=== PATIENT | male | born 1945 | race Caucasian/White ===

== ENCOUNTER 2017-08-09 09:09 | Emergency (ER) | payer OTHER ==
[2017-08-09] MEDS ORDERED: NS 1,000 ML IV ONE (09:51)
[2017-08-09] MEDS ORDERED: KETOROLAC 30 MG/1 ML SDV IVP ONE (09:51)
[2017-08-09] MEDS ORDERED: DEXAMETHASONE 10 MG/ML VIAL IVP ONE (09:51)
--- NOTE | 2017-08-09 09:51 | EDPHY ---
H & P Time Seen by Provider: 08/09/17 09:17 HPI/ROS: HPI Back pain. 72-year-old male by ambulance. His is present at bedside. This patient reports that he underwent bunion surgery by a regional sales director about a week ago. He was in an orthopedic boot which caused him to walk in uneven way. Since that time he has had left lower back pain. He then developed sciatica. Described as pain radiating from his buttock down about snf posterior aspect of left thigh. He presents the emergency department now complaining of worsening left lower back pain as well as pain going down the back of his leg and some numbness in the L5 dermatomal distribution. He was given 2 doses of intranasal fentanyl on the way to the emergency department. He has had some relief in his pain from this. Review of his MRI report significant for prominent degenerative facet arthropathy at L4-L5 including reactive marrow/soft tissue edema on the left side a 6 mm synovial cyst markedly narrows the left subarticular zone and impinges on the descending left L5 nerve root. ROS: Constitutional: No fever, no chills. No weakness. Eyes: No discharge. No changes in vision. ENT: No sore throat. No nasal congestion or rhinorrhea. Respiratory: No cough. No shortness of breath. Cardiac: No chest pain, no palpitations. Gastrointestinal: No abdominal pain, no vomiting, no diarrhea. Genitourinary: No hematuria. No dysuria or increased frequency with urination. Musculoskeletal: As above. No neck pain. No myalgias or arthralgias. Skin: No rashes. Neurological: No headache. As above. Past medical history: As above. Social history: No alcohol. No smoking. Here with his . Physical Exam: General Appearance: Alert, no distress. This patient is responding to questions appropriately and in full sentences. This patient appears well- hydrated and well-nourished. Eyes: Pupils equal and round no pallor or injection. No lid edema, erythema or injection. Back exam: Vague tenderness on palpation left paraspinal L4-L5, no soft tissue edema, erythema, warmth or ecchymosis noted. Negative same side and cross side straight leg raise test bilaterally. Paresthesia and 4/5 weakness noted L5 dermatomal myotomes all distribution on the left. Gastrointestinal: Abdomen is soft and nontender, no masses, bowel sounds normal. No focal tenderness at McBurney's point. No Guerrero sign. Neurological: Motor sensory function is grossly intact. Cranial nerves are normal. Gait is normal. Skin: Warm and dry, no rashes. Musculoskeletal: Neck is supple and nontender. Extremities are symmetrical. All joints range without pain or impingement. Psychiatric: No agitation. No depression. Database: EKG: Imaging: MRI of lumbar spine without contrast: Significant for a synovial cyst left- sided facet at L4-L5 causing impingement of the L5 nerve root. This cyst measures approximately 8 mm in diameter. Results were discussed with staff radiologist Dr. Jagjit Padilla. Procedures: Emergency department course: IV placed. He was placed on a monitor. Vital signs reviewed. Patient will initially be given 30 mg of IV Toradol and 10 mg of IV Decadron. He will be started on IV normal saline with 500 cc to 1 L to be given over the next hour. Secondary to his now acute neurologic L5 radicular findings. He consents to repeat MRI of his lumbar spine. 12:05 p.m., patient re-evaluated. Discussed results of MRI as noted above. Neurosurgery paged for consultation. 12:15 p.m., spoke with Dr. Sanchez. He or 1 of his colleagues will come to the emergency department shortly to evaluate the patient and planned disposition. 12:35 p.m., patient seen by Dr. Pedro Maurice of Neurosurgery. He recommends conservative treatment for the next 2 days including oral steroids and possibly a steroid injection. 1:00 p.m., spoke with interventional radiologist Dr. Karthikeyan sorensen. He will schedule this patient for a epidural steroid injection. He was given the patient's information. Plan for outpatient follow-up with IR was discussed with the patient and his . I will prescribe him a Medrol Dosepak. Patient is able to ambulate at this time. He does feel comfortable going home with a initial conservative management followed by Neurosurgery follow-up later this week. Return to emergency department precautions reviewed with him and his . All their questions were answered. The patient was discharged in good condition. Differential Diagnosis: The differential diagnosis on this patient includes but is not limited to L5 radiculopathy, acute intervertebral disc herniation. Spinal cord impingement syndrome, cauda equina syndrome, AAA, epidural abscess, acute fracture, dislocation/subluxation unlikely. This represents a partial list of diagnoses considered. These considerations are based on history, physical exam, past history, reassessment and diagnostic testing. Smoking Status: Never smoked Constitutional: Initial Vital Signs Temperature (C) 36.6 C 08/09/17 09:13 Heart Rate 78 08/09/17 09:13 Respiratory Rate 18 08/09/17 09:13 Blood Pressure 166/94 H 08/09/17 09:13 O2 Sat (%) 98 08/09/17 09:13 O2 Delivery Mode Room Air O2 (L/minute) 2 Allergies/Adverse Reactions: fluticasone Allergy (Verified 08/09/17 09:13) Home Medications: Medication Instructions Recorded Cyclobenzaprine 08/09/17 Meloxicam 08/09/17 Omeprazole 08/09/17 methylPREDNISolone [Medrol Dose 1 each PO AD #1 ea 08/09/17 Marc] Medical Decision Making - Diagnostics Imaging Results: Imaging Impressions Lumbar Spine MRI 08/09/17 09:52 Impression: 1. L4-L5: Moderate central canal stenosis and bilateral lateral recess stenosis , left worse than right secondary to moderate degenerative disk disease, severe bilateral facet arthropathy, degenerative grade 1 anterolisthesis, and left facet synovial cyst. 2. Please see above findings at specific disk levels. Findings and recommendations discussed with Emergency Department physician, Bernard Hannon MD, at 1150 hour, 08/09/2017. Final report concurs with initial preliminary interpretation. - Data Points Medications Given: Discontinued Medications Dexamethasone (Decadron Injection) 10 mg IVP EDNOW ONE Stop: 08/09/17 09:52 Last Admin: 08/09/17 09:59 Dose: 10 mg Sodium Chloride (Ns) 1,000 mls @ 0 mls/hr IV ONCE ONE; Wide Open PRN Reason: Protocol Stop: 08/09/17 09:52 Last Admin: 08/09/17 09:59 Dose: 1,000 mls Ketorolac Tromethamine (Toradol) 30 mg IVP EDNOW ONE Stop: 08/09/17 09:52 Last Admin: 08/09/17 09:59 Dose: 30 mg Departure - Departure Disposition: Home, Routine, Self-Care Clinical Impression: Lumbosacral radiculopathy at L5 Condition: Good Instructions: Lumbar Radiculopathy (ED) Additional Instructions: Read and follow provided instructions. Take medication as prescribed. Interventional radiologist, Dr. Karthikeyan sorensen, has your contact information. I have put in an order for an epidural steroid injection. His office should be contacting you shortly. Follow-up with Dr. Abdon Maurice or 1 of his partners with the neurosurgery service for re-evaluation later this week. Return to the emergency department for worsening or uncontrolled pain, worsening weakness or other serious concerns. Referrals: Abdon Maurice MD [Medical Doctor] - As per Instructions Leonides Sorensen MD [Medical Doctor] - As per Instructions Prescriptions: methylPREDNISolone [Medrol Dose Marc] 1 each PO AD #1 ea
[2017-08-09 13:21] VITALS: BP 159/85
[2017-08-09] MEDS ORDERED: TRIAMCINOLONE ACETONIDE 200 MG/5 ML MDV IM ONE (15:23)
[2017-08-09] MEDS ORDERED: IOPAMIDOL (ISOVUE-M 300) 15 ML VIAL ONE (15:23)
[2017-08-09] MEDS ORDERED: LIDOCAINE 1% 300 MG/30 ML SDV ONE (15:23)
[2017-08-09] MEDS ORDERED: DEXAMETHASONE 10 MG/ML VIAL ONE (15:43)
--- NOTE | 2017-08-09 16:57 | GCON ---
[f rep st] CONSULTATION NEUROSURGERY CONSULTATION DATE OF CONSULTATION: 08/09/2017 The patient was seen and evaluated in the [facility] ER at approximately 12:45 p.m. HISTORY OF PRESENT ILLNESS: The patient is a 72-year-old, otherwise healthy man who was brought in b y ambulance today. He had a recent bunion surgery on his left foot and has been having some signific ant left leg pain since around that time 2 weeks ago. His pain is primarily in the anterior portion of the may radiating in the lateral and top aspect of the foot, primarily L5 distribution. The pain has been worsening. He says it is worse in the morning, but today, he was unable to get out of bed at all. He presented into the emergency department here where an MRI of the lumbar spine was visuali zed showing an L4-5 significant facet disease with a 6 mm synovial cyst that narrows the lateral rece ss and impinges the descending L5 nerve root on the left. He had some meloxicam and muscle relaxants , but otherwise, no significant conservative management. His pain is reasonably well controlled at t he time of my visit with him, and he had been given some Toradol and narcotics. REVIEW OF SYSTEMS: A 10-point review of systems is negative other than that described above in HPI. PAST MEDICAL HISTORY: 1. Asthma. 2. Multiple orthopedic surgeries to both feet. SOCIAL HISTORY: The patient denies any tobacco, alcohol, or other drug use. He presents here with h is . He is retired. FAMILY HISTORY: Positive for cancer in the mother. ALLERGIES: Flonase. MEDICATIONS: 1. Flexeril. 2. Meloxicam. 3. Omeprazole. 4. A sleep aid. PHYSICAL EXAMINATION: VITAL SIGNS: Currently he is afebrile with normal, stable vital signs. NEURO LOGIC: He is awake, alert, and oriented x3. Cranial nerves 2-12 grossly normal. The strength in al l muscle groups of the upper limbs was grossly normal. In the lower extremities, he has 5/5 strength in hip flexors, extensors, knee flexors, extensors, and plantar and dorsiflexion bilaterally. He alexandra s a bandage on the left foot in the region of his bunionectomy. He has some decreased sensation in t he L5 distribution on the left side but is grossly intact. Deep tendon reflexes appear to be normal. He does have a quite positive straight leg raise on the left in L5 distribution. IMAGING REVIEW: See HPI. He does have an MRI of the lumbar spine which shows multilevel degenerativ e disease, worst at L4-5, with a synovial cyst on the left that significantly narrows the lateral rec ess and likely impinges on the descending L5 nerve root. ASSESSMENT AND PLAN: The patient is a 72-year-old man who has left L5 radiculopathy from likely a sy novial cyst at L4-5. I discussed with him the options including conservative and surgical options. In terms of conservative management, he has not done much thus far in the past and I recommended a Me drol Dosepak and follow up for an epidural steroid injection, and we could get him into some physical therapy as well. In terms of surgery, he would likely need a transforaminal lumbar interbody fusion at L4-5 to stabilize the facets and remove this cyst. We certainly could proceed with this if he wa nts in the future, but I recommended that he try some conservative management first. He is quite hap py with this plan. The emergency department going to arrange followup for him for a steroid injectio n, and we will arrange clinic followup for him as well. They will give him the numbers to call if he is having further problems and we will get him in sooner. /[id number]/MODL
--- NOTE | 2017-08-10 11:19 | PDCONSULT ---
Psychometrist Note: Consulted for acute LE radicular pain. Available MRI showed nerve root impingement 2/2 synovial cyst. Pt. seen by NSG Dr. Maurice who recommended lumber WILLA. Patient will consider definitive synovial cyst fenestration at a later date. Agree with Dr. Maurice and indication for WILLA to relieve pain and temporize. Radiology Procedure Note Date of Procedure: 08/10/17 Radiologist: Leonides Wagner Anesthesia: Local (Specify) Pre-op Diagnosis: left L4/5 NR impingement Post-op Diagnosis: same Indication: pain relief Procedure: left L4/5 WILLA Finding(s): good epidurogram prior to medication administration. Dexamethasone in 2mL lidocaine given. Pain relief was significant and immediate. Inf/Abcess present in the surg proc area at time of surgery?: No EBL: Minimal Complications: none
== END 2017-08-09 14:16 | disposition home or self-care (01) ==
LOC: EDUNIT#
DX: M54.17 Radiculopathy, lumbosacral region (principal); E86.9 Volume depletion, unspecified
CPT/HCPCS: 72148; 96361; 96374; 96375; 99152; 99285; J1100; J1885; Q9967; J3301

== ENCOUNTER 2017-08-16 13:30 | Day surgery (SDC) | payer OTHER ==
[2017-08-16] MEDS ORDERED: FLUMAZENIL 0.5 MG/5 ML MDV IVP PRN (13:51)
[2017-08-16] MEDS ORDERED: NALOXONE HCL 0.4 MG/ML INJ IVP PRN (13:51)
[2017-08-16] MEDS ORDERED: MIDAZOLAM 2 MG/2 ML VIAL IVP PRN (13:51)
[2017-08-16] MEDS ORDERED: fentaNYL 100 MCG/2 ML INJ IVP PRN (13:51)
[2017-08-16] MEDS ORDERED: NS 1,000 ML IV SCH (14:00)
--- NOTE | 2017-08-16 15:35 | PDGENHP ---
History & Physical Chief Complaint: LEFT L5 NERVE PAIN. LT L4-5 SONOVIAL CYST History of Present Illness: S/P L4-5 WILLA, WHICH HELPED X 24HRS. HERE FOR SYNOVIAL CYST FENESTRATION. Pertinent Past, Social, Family History: BUNIONECTOMY, SURGERY IN FOOT. Relevant Physical Exam: PAIN DOWN BOTH FOOT AND CALF Cardiorespiratory Assessment: RRR. CTA
--- NOTE | 2017-08-16 15:36 | PDPROPOC ---
Sedation Plan of Care Sedation Plan of Care: vital signs stable, mental status noted, patient educated of risks, benefits, alternatives, patient can tolerate sedation ASA Classification: ASA 1 Planned drugs: fentanyl, midazolam Mallampati Score: Class 1 Mallampati Reference Image: Patient passed 3-3-2 rule?: Yes
[2017-08-16] MEDS ORDERED: fentaNYL 100 MCG/2 ML INJ ONE ×3 (16:07→17:10)
[2017-08-16] MEDS ORDERED: MIDAZOLAM 2 MG/2 ML VIAL ONE ×2 (16:07→16:49)
[2017-08-16] MEDS ORDERED: TRIAMCINOLONE ACETONIDE 200 MG/5 ML MDV IM ONE (17:00)
[2017-08-16] MEDS ORDERED: IOPAMIDOL (ISOVUE-M 300) 15 ML VIAL ONE (17:18)
[2017-08-16] MEDS ORDERED: LIDOCAINE 1% 300 MG/30 ML SDV ONE (17:18)
[2017-08-16] MEDS ORDERED: ONDANSETRON 4 MG/2 ML VIAL IVP PRN (17:25)
--- NOTE | 2017-08-16 17:26 | PDRADPN ---
Radiology Procedure Note Date of Procedure: 08/16/17 Radiologist: Katheryn Santo Anesthesia: IV Sedation Pre-op Diagnosis: LT L4-5 SYNOVIAL CYST Post-op Diagnosis: SAME Indication: LT LEG PAIN Procedure: CYST FENESTRATION Finding(s): HARD CYST TO GET TO. GOT 0.2CC OF FLUID OUT. Inf/Abcess present in the surg proc area at time of surgery?: No Complications: NONE
[2017-08-16 18:10] VITALS: BP 149/76
== END 2017-08-16 18:50 | disposition home or self-care (01) ==
LOC: FIMAGING 13:30
PROVIDERS: ATTEND Neurological Surgery
PROC: 0S903ZZ Drainage of Lumbar Vertebral Joint, Percutaneous Approach (ICD-10-PCS; principal; 2017-08-16 17:35)
PROC: 3E0R3BZ Introduction of Anesthetic Agent into Spinal Canal, Percutaneous Approach (ICD-10-PCS; principal; 2017-08-16 17:35)
PROC: 3E0R329 Introduction of Other Anti-infective into Spinal Canal, Percutaneous Approach (ICD-10-PCS; principal; 2017-08-16 17:35)
DX: M71.38 Other bursal cyst, other site (principal); M54.17 Radiculopathy, lumbosacral region
CPT/HCPCS: J2250; J2310; J3010; J3301; Q9967

== ENCOUNTER 2017-09-16 10:10 | Day surgery (SDC) | payer OTHER ==
[2017-09-16] MEDS ORDERED: NALOXONE HCL 0.4 MG/ML INJ ONE (10:32)
[2017-09-16] MEDS ORDERED: fentaNYL 100 MCG/2 ML INJ ONE (10:33)
[2017-09-16] MEDS ORDERED: MIDAZOLAM 2 MG/2 ML VIAL ONE (10:33)
[2017-09-16] MEDS ORDERED: FLUMAZENIL 0.5 MG/5 ML MDV IVP ONE (10:33)
[2017-09-16] MEDS ORDERED: fentaNYL 100 MCG/2 ML INJ IVP PRN (10:55)
[2017-09-16] MEDS ORDERED: MIDAZOLAM 2 MG/2 ML VIAL IVP PRN (10:55)
[2017-09-16] MEDS ORDERED: ALTEPLASE 2 MG VIAL IVP PRN (10:55)
[2017-09-16] MEDS ORDERED: MEPERIDINE 25 MG/ML SYR IVP PRN (10:55)
[2017-09-16] MEDS ORDERED: HEPARIN 10,000 UNIT/10 ML MDV (1,000 UNIT/ML) IVP PRN (10:55)
[2017-09-16] MEDS ORDERED: FLUMAZENIL 0.5 MG/5 ML MDV IVP PRN (10:55)
[2017-09-16] MEDS ORDERED: GLUCAGON HCL 1 MG VIAL IVP PRN (10:55)
[2017-09-16] MEDS ORDERED: PROTAMINE SULFATE 50 MG/5 ML VIAL IVP PRN (10:55)
[2017-09-16] MEDS ORDERED: NALOXONE HCL 0.4 MG/ML INJ IVP PRN (10:55)
[2017-09-16] MEDS ORDERED: NS 1,000 ML IV SCH (11:00)
[2017-09-16 11:19] LABS: INR 0.92 (0.83-1.16); PROTIME(PATIENT) 12.6 SEC (12.0-15.0)
[2017-09-16] MEDS ORDERED: LIDOCAINE 1% 300 MG/30 ML SDV ONE (11:32)
--- NOTE | 2017-09-16 11:51 | PDGENHP ---
History & Physical Chief Complaint: LT L4-5 facet cyst History of Present Illness: s/p previous cyst fenestration. got better. now pain intermittently back. CT guided fenestration/rupture to be done. Pertinent Past, Social, Family History: n/a Relevant Physical Exam: 8/10 pain at worst Cardiorespiratory Assessment: rrr, cta.
[2017-09-16] MEDS ORDERED: DEXAMETHASONE 10 MG/ML VIAL ONE (13:04)
[2017-09-16] MEDS ORDERED: ONDANSETRON 4 MG/2 ML VIAL IVP PRN (13:58)
--- NOTE | 2017-09-16 13:58 | PDRADPN ---
Radiology Procedure Note Date of Procedure: 09/16/17 Radiologist: Katheryn Santo Anesthesia: IV Sedation Pre-op Diagnosis: L4-5 LT FACET CYST Post-op Diagnosis: SAME Indication: BACK PAIN Procedure: CT GUIDED CYST RUPTURE AND STEROID INJECTION Inf/Abcess present in the surg proc area at time of surgery?: No Complications: NONE IMMEDIATELY
[2017-09-16 14:48] VITALS: BP 137/69
== END 2017-09-16 15:10 | disposition home or self-care (01) ==
LOC: FIMAGING 10:10
PROVIDERS: ATTEND Neurological Surgery
PROC: 3E0S3BZ Introduction of Anesthetic Agent into Epidural Space, Percutaneous Approach (ICD-10-PCS; principal; 2017-09-16 14:10)
PROC: 3E0S33Z Introduction of Anti-inflammatory into Epidural Space, Percutaneous Approach (ICD-10-PCS; principal; 2017-09-16 14:10)
DX: M71.38 Other bursal cyst, other site (principal); M54.16 Radiculopathy, lumbar region
CPT/HCPCS: J1100; J2250; J2310; J3010